=== PATIENT | female | born 1985 | race Caucasian/White ===

== ENCOUNTER → 2022-11-18 13:53 | Outpatient (REF) | payer BC, SELFPAY ==
--- NOTE | 2022-11-18 14:01 | CA_ITS ---
Transthoracic Echocardiogram Patient (Last, First, Middle): Nohemi Boyle L Gender: Female Date of : 1985 Age: 37 Procedure Date: 11/18/2022 Procedure Type: Transthoracic Echocardiogram Location: OP Height: 170.18 cm Weight: 74.84 kg BSA: 1.86 m2 Heart Rate: bpm BP: 104 / 68 mmHg Peace Officer: CATHY Referring MD: Ligia Marsh MD Symptoms: I27.20 PULMONARY HTN Study Quality: Adequate ECG Rhythm: Sinus Conclusions: - The left ventricular systolic function is normal. The calculated ejection fraction is 64% by biplane method. - No obvious valvular pathology seen on this study. - There is no evidence of pulmonary hypertension. Findings Left Ventricle Normal left ventricular cavity size. There is normal left ventricular wall thickness. The left ventricular systolic function is normal. The calculated ejection fraction is 64% by biplane method. There is no evidence of regional wall motion abnormalities. Diastolic function is normal for age. LV peak GLS -19%, normal. Right Ventricle Normal right ventricular cavity size and systolic function. Atria Both atria are normal in size. Aortic Valve There is a normal trileaflet aortic valve. There is no aortic valve stenosis. There is no aortic valve regurgitation. Mitral Valve The mitral valve appears normal. There is trace mitral valve regurgitation. There is no mitral valve stenosis. Pulmonic Valve The pulmonic valve is likely normal. Tricuspid Valve Normal tricuspid valve structure. There is mild tricuspid valve regurgitation. There is no evidence of pulmonary hypertension. Great Vessels The asc aorta is normal in size. Venous The inferior vena cava is normal in size and collapses greater than 50% with inspiration. Pericardium/Pleural There is a trivial pericardial effusion. Prior Study Comparison No prior study available for comparison. Recommendations, Care & Conclusions No obvious valvular pathology seen on this study. Measurements 2D Linear Measurements IVSd: 0.88 0.6-0.9/0.6-1.0 cm LVIDd: 4.64 3.9-5.3/4.2-5.9 cm LVIDd Index: 2.49 2.4-3.2/2.2-3.1 cm/m2 LVIDs: 2.71 2.0-3.6 cm LVPWd: 0.85 0.7-1.1 cm LA Diam: 3.30 2.7-3.8/3.0-4.0 cm LAIDs Index: 1.77 1.5-2.3 cm/m2 LV Mass: 164.54 67-162/88-224 g LV Mass Index: 88.46 43-95/49-115 g/m2 LVOT Diam: 1.90 3.0+(-)1.3 cm 2D Systolic Function EF 4C: 64.00 >55% EF 2C: 65.00 >55% EF BiP: 63.80 >55% Mitral Valve MV Pk E: 0.80 MV PK A: 0.54 MV Decel Time: 272.00 E/A: 1.50 E'Lateral: 14.60 E'Medial: 9.14 E/E' Med: 8.80 E/E' Lat: 5.50 PHT: 80.00 MVA PHT: 2.75 Decel [place]: 2.94 Aortic Valve AoV Pk Mendez: 1.31 AoV Mn Mendez: 0.96 AoV VTI: 0.30 AoV Pk Grad: 7.00 Aov Mn Grad: 4.00 IRIS Cont.VTI: 2.44 LVOT LVOT Pk Mendez: 1.11 LVOT Mn Mendez: 0.74 LVOT VTI: 0.26 LVOT Pk Grad: 5.00 LVOT Mn Grad: 2.00 LVOT Diam: 1.90 LVOT Area: 2.84 Diastolic Function MV Pk E: 0.80 MV Pk A: 0.54 E/A: 1.50 E'Medial: 9.14 E/E' Med: 8.80 E' Laterial: 14.60 E/E' Lat: 5.50 Right Ventricle TAPSE (mm): 19.50 TVS' Mendez: 10.10 Tricuspid Valve TR Pk Mendez: 2.52 TR Pk Grad: 25.00 RA Press: 3.00 RVSP: 28.00 Great Vessels Aorta Sinus of Valsalva: 2.70 2.0-3.5 cm Ao Asc: 2.30 2.1-3.4 cm Updated in Other Vendor System with Status of Final Steven Recio MD electronically signed on 11/19/2022 10:20:20 AM with status of Final
== END ==
LOC: HO.CARD 13:53
PROVIDERS: PCP Family Medicine; Visit Provider Internal Medicine Pulmonary Disease
DX: I27.20 Pulmonary hypertension, unspecified (principal)
CPT/HCPCS: 93306; 93356

== ENCOUNTER → 2022-11-18 14:01 | Outpatient (BNV) | payer BC, SELFPAY | PROVIDERS: PCP Family Medicine; Visit Provider Internal Medicine | DX: I36.1 Nonrheumatic tricuspid (valve) insufficiency (principal) | CPT/HCPCS: 93306 ==